=== PATIENT | female | born 1970 | race Caucasian/White ===

== ENCOUNTER → 2017-02-16 | Outpatient (CLI) | payer BC ==
--- NOTE | 2017-02-16 12:29 | MAMMOGRAPHY REPORT ---
BILATERAL DIGITAL SCREENING MAMMOGRAM TOMOSYNTHESIS WITH CAD: 02/16/2017 CLINICAL HISTORY: Routine screening. Patient has no complaints. TECHNIQUE: Breast tomosynthesis in addition to standard 2D mammography was performed. Current study was also evaluated with a Computer Aided Detection (CAD) system. COMPARISON: Comparison is made to exams dated: 02/16/2016 mammogram, 02/11/2015 mammogram, 02/07/2014 m ammogram, 02/06/2013 mammogram, 02/02/2012 mammogram, and 01/22/2010 mammogram - [facility]ter. BREAST COMPOSITION: There are scattered areas of fibroglandular density in both breasts. FINDINGS: No suspicious masses, calcifications, or areas of architectural distortion are noted in ei ther breast. There has been no significant interval change compared to prior exams. Scattered bilater al benign-appearing calcifications are not significantly changed. IMPRESSION: ACR BI-RADS CATEGORY 2: BENIGN There is no mammographic evidence of malignancy. A 1 year screening mammogram is recommended. The pa tient will receive written notification of the results. Approximately 10% of breast cancers are not detected with mammography. A negative mammographic report should not delay biopsy if a clinically suggestive mass is present. Katy García M.D. /:02/16/2017 10:12:21 Wire Mesh Knitter: Ariella JON)(M), [facility] letter sent: Normal 1/2 BI-RADS Code: ACR BI-RADS Category 2: Benign
== END | disposition home or self-care (01) ==
LOC: C.MAMM 08:06
PROVIDERS: ATTEND Family Medicine
DX: Z12.31 Encounter for screening mammogram for malignant neoplasm of breast (principal)

== ENCOUNTER → 2017-02-23 | Outpatient (CLI) | payer BC | END | disposition home or self-care (01) | LOC: C.PAPS 11:36 | PROVIDERS: ATTEND Physician Assistant | DX: Z01.419 Encounter for gynecological examination (general) (routine) without abnormal findings (principal) ==

== ENCOUNTER → 2017-05-16 | Outpatient (CLI) | payer BC ==
--- NOTE | 2017-05-16 17:49 | DIAGNOSTIC IMAGING REPORT ---
LEFT LOWER EXTREMITY VENOUS DOPPLER CLINICAL HISTORY: SWELLING BEHIND LEFT KNEE COMPARISON STUDY: No previous studies for comparison. TECHNIQUE: Sonography of the deep venous system of the left lower extremity was performed. Compression and augmentation were evaluated. FINDINGS: The common femoral, superficial femoral and popliteal veins were compressible. Augmentation was normal. Flow was shown within the deep calf vessels. Note is made of a 4.3 x 2.9 x 1.2 cm cystic structure within left popliteal fossa. IMPRESSION: 1. No evidence of deep venous thrombus within the left lower extremity. 2. 4.3 x 2.9 x 1.2 cm cystic abnormality within the left popliteal fossa which favors a popliteal cyst. Electronically signed by: Moy Jones M.D. 05/16/2017 5:47 PM Dictated Date/Time: 05/16/2017 5:46 PM
== END | disposition home or self-care (01) ==
LOC: C.ULTR 16:39
PROVIDERS: ATTEND Family Medicine Hospice and Palliative Medicine
DX: M79.89 Other specified soft tissue disorders (principal)

== ENCOUNTER 2018-08-05 09:18 | Observation (INO) ==
--- NOTE | 2018-08-05 09:53 | CT Scan Report ---
CT head/brain wo con CLINICAL HISTORY: Left-sided weakness. Stroke like symptoms. COMPARISON STUDY: No previous studies for comparison. TECHNIQUE: Axial CT of the brain is performed from the vertex to the skull base. IV contrast was not administered for this examination. A dose lowering technique was utilized adhering to the principles of ALARA. CT DOSE: FINDINGS: No intra or extra-axial mass lesions are visualized. There is no CT evidence of acute cortical infarc tion. There is no evidence of midline shift. There is no acute hemorrhage. No calvarial fractures ar e visualized. There is no evidence of pathologic ventricular dilatation. There is no evidence of acute sinusitis IMPRESSION: Normal noncontrast head CT. Electronically signed by: Danial Cobos M.D. 08/05/2018 9:51 AM
[2018-08-05 10:00] LABS: Basophils # (auto) 0.03 K/uL (0-0.2); Basophils % (auto) 0.4 %; Eosinophils # (auto) 0.11 K/uL (0-0.5); Eosinophils % (auto) 1.5 %; Hematocrit (blood only) 42.7 % (37-47); Hemoglobin 14.2 g/dL (12.0-16.0); Immature Granulocytes # (auto) 0.01 K/uL (0.00-0.02); Immature Granulocytes % (auto) 0.1 %; Lymphocytes # (auto) 1.95 K/uL (1.2-3.4); Lymphocytes % (auto) 26.2 %; Mean Corpuscular Hgb Conc 33.3 g/dL (32-36); Mean Corpuscular Volume 88.4 fL (80-100); Mean Platelet Volume 10.4 fL (7.4-10.4); Monocytes # (auto) 0.59 K/uL (0.11-0.59); Monocytes % (auto) 7.9 %; Neutrophils # (auto) 4.75 K/uL (1.4-6.5); Neutrophils % (auto) 63.9 %; Platelet Count 322 K/uL (130-400); RDW Coefficient of Variation 13.3 % (11.5-14.5); RDW Standard Deviation 43.1 fL (36.4-46.3); Red Blood Count 4.83 M/uL (4.2-5.4); White Blood Count 7.44 K/uL (4.8-10.8)
[2018-08-05] MEDS ORDERED: SODIUM CHLORIDE 0.9% 1000ML 1,000 ML IV ONE (10:00)
[2018-08-05 10:06] LABS: iSTAT Creatinine 0.8 mg/dl (0.6-1.3); iSTAT Ionized Calcium 1.18 mmol/l (1.12-1.32); iSTAT Potassium 3.9 mEq/L (3.3-5.0)
[2018-08-05 10:17] LABS: Alanine Aminotransferase 41 U/L (12-78); Albumin Level 3.7 gm/dl (3.4-5.0); Aspartate Aminotransferase 21 U/L (15-37); BUN Creatinine Ratio 15.4 (10-20); Blood Urea Nitrogen 14 mg/dl (7-18); Calcium 9.2 mg/dl (8.5-10.1); Carbon Dioxide 31 mmol/L (21-32); Chloride 107 mmol/L (98-107); Creatinine Clr Calc Pharmacy 85.8 ml/min; Est GFR (African American) 87.6; Est GFR (Non-African American) 75.6; Glucose 99 mg/dl (70-99); Magnesium 1.9 mg/dl (1.8-2.4); Sodium 143 mmol/L (136-145)
[2018-08-05 10:22] LABS: Albumin Globulin Ratio 0.8 (0.9-2); Alkaline Phosphatase 93 U/L (45-117); Bilirubin,Total 0.4 mg/dl (0.2-1); Globulin 4.6 gm/dl (2.5-4.0); Total Protein 8.3 gm/dl (6.4-8.2); Troponin I < 0.015 ng/ml (0-0.045)
[2018-08-05] MEDS ORDERED: ASPIRIN CHEW 324 MG PO STA (10:22)
[2018-08-05] MEDS ORDERED: IOVERSOL 100ml IV PRN (10:26)
[2018-08-05 10:27] LABS: Partial Thromboplastin Ratio 3.4; Prothrombin Time 10.6 Seconds (9.0-12.0)
[2018-08-05 10:31] LABS: Partial Thromboplastin Time 91.5 Seconds (21.0-31.0)
--- NOTE | 2018-08-05 10:44 | CT Scan Report ---
CT angio head w con CLINICAL HISTORY: L sided weakness. Stroke like symptoms. TECHNIQUE: CT angiography of the head was performed in a dynamic helical fashion during intravenous a dministration of 120 cc of Optiray 320. MIP imaging was performed. A dose lowering technique was util ized adhering to the principles of ALARA. CT DOSE: COMPARISON STUDY: Noncontrast head CT dated 08/05/2018 FINDINGS: There are no pathologically enhancing lesions. There is no evidence for dural venous sinus thrombosis. 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 There are no major intracranial branch occlusions. IMPRESSION: 1. 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 Electronically signed by: Danial Cobos M.D. 08/05/2018 10:42 AM
--- NOTE | 2018-08-05 10:45 | CT Scan Report ---
CT angio neck with con CLINICAL HISTORY: Acute stroke SIDED WEAKNESS COMPARISON STUDY: No previous studies for comparison. TECHNIQUE: CT angiography was performed from the aortic arch to the skull base. MIP imaging was perfo rmed. The patient was scanned in a dynamic helical fashion during intravenous administration of c c of Optiray 320. A dose lowering technique was utilized adhering to the principles of ALARA. CT DOSE: 542.67 mGy.cm Technique: CT angiogram of the carotid and vertebral arteries was obtained using intravenous contrast and 3-D reconstruction. NASCET criteria was utilized. Findings: The right carotid revealed no evidence of aneurysm and no evidence of dissection. There is no evidenc e of hemodynamic significant stenosis. The left carotid revealed no evidence of hemodynamic significant stenosis. There is no evidence of an eurysm. There is no evidence of dissection. There is no evidence of hemodynamically significant vertebral stenosis. There is no evidence of verte bral dissection. IMPRESSION: No evidence of hemodynamically significant carotid or vertebral artery stenosis. No evidence of disse ction. Electronically signed by: Danial Cobos M.D. 08/05/2018 10:44 AM
[2018-08-05] MEDS ORDERED: fentaNYL citrate 100 MCG/2 ML VIAL IV STA (10:48)
--- NOTE | 2018-08-05 11:02 | History & Physical Report ---
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 Neuro consulted and recommends short course of high dose steroids and close PCP follow-up. She is ambulatory with no swallowing deficits. First dose of prednisone given as i npatient and she was discharged home in stable condition. TTE was performed and reading was pending at time of dicsharge. (2) HOSEA (obstructive sleep apnea): CPAP per home settings. DVTproph-SCDs/ambulatory Full Dispo-to home. Mag Jurado DO [facility] Hospitalist History of Present Illness Chief Complaint: facial paralysis and numbness Primary Care Provider: Tamara Sanchez 47 yo nonsmoker presents with acute onset left facial weakness and numbness while brushing her teeth this morning. She also reported a left hand weakness. She denies headache or other stroke like symptoms. She described no recent illnesses. ROS was otherwise negative. A stroke alert was called in the ER and TPA was not indicated as her facial droop appeared equivocal and stroke scale was low. She was admitted to the hospitalist service and MRI was performed and negative. 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 An echo was performed with results pending at time of discharge. She was hemodynamically stable and afebrile. Speech pathology evaluated her and did not see any acute swallowing issues. Neurology evaluation revealed findings consistent with a Monteiro's palsy and high dose prednisone was started. She was considered low risk for stroke and was discharged in stable condition with a 5 day course of high dose prednisone and close primary care followup. Allergies Allergy/AdvReac Type Severity Reaction Status Date / Time oxycodone Allergy Mild Unknown Unverified 08/05/18 10:13 propoxyphene Allergy Mild Unknown Unverified 08/05/18 10:13 Home Medications Home Medications Medication Instructions Recorded Confirmed Type multivitamin 1 tab PO HS 08/05/18 08/05/18 History prednisone 60 mg PO DAILY 5 Days #15 tab 08/05/18 Rx Past Med/Surg History Medical History Pleurisy (Acute) Chest pain, unspecified (Resolved) HOSEA (obstructive sleep apnea) (Chronic) Surgical History History of endometrial ablation (Chronic) Hx of cholecystectomy (Chronic) Family History Other Family history non-contributory Social History Preferred Language: Danish Communication Ability: Effective Chicken Vaccinator Required: No Beliefs That Will Affect Care: None marital status: Current Living Situation: Spouse current occupational status: employed Other Information That Helps Us Care for You: No Feels Safe at Home: Yes Safety Concerns: Feels Safe At This Time Smoking Status: Never smoker Hx Alcohol Use: No Hx Substance Use: No Review of Systems At least ten systems were reviewed and negative except as indicated in HPI above. Physical Exam Vital Signs (Past 24 Hours): Last Vital Signs Temp 36.8 C 08/05/18 09:29 Pulse 63 08/05/18 11:00 Resp 20 08/05/18 09:29 BP 145/86 H 08/05/18 10:52 Pulse Ox 97 08/05/18 11:00 CONSTITUTIONAL: WNWD, vitals as above, generally well-appearing EYES: EOMI bilaterally, PERRL, normal conjuctivae, no scleral icterus ENT: facial paralysis of proximal left midface with some movement when she smiled. Normal sensation to bilateral face. Eyebrow raise intact bilaterally. She could fully close her L eye. R face not affected. Shoulder shrug intact. RESPIRATORY: clear to auscultation bilaterally, no crackles, rales or wheezes, normal respiratory effort CARDIOVASCULAR: regular rate and rhythm, S1 and 2 heard without murmurs, gallops or rubs, no JVD, no peripheral edema GASTROINTESTINAL: normal bowel sounds, soft, nontender, nondistended MUSCULOSKELETAL: strength 5/5 throughout, head is normocephalic and atraumatic, neck supple SKIN: warm and dry NEUROLOGIC: facial palsy as above, otherwise she is ambulatory. PSYCHIATRIC: alert cooperative and oriented to person, place and time. Results & Data Laboratory Results Short CBC 08/05/18 Range/Units 09:47 WBC 7.44 (4.8-10.8) K/uL Hgb 14.2 (12.0-16.0) g/dL Hct 42.7 (37-47) % Plt Count 322 (130-400) K/uL BMP 08/05/18 09:47 Sodium 143 Potassium 4.0 Chloride 107 Carbon Dioxide 31 BUN 14 Creatinine 0.90 Glucose 99 Calcium 9.2 Cardiac Enzymes 08/05/18 Range/Units 09:47 Troponin I < 0.015 (0-0.045) ng/ml Liver Function 08/05/18 Range/Units 09:47 Total Bilirubin 0.4 (0.2-1) mg/dl AST 21 (15-37) U/L ALT 41 (12-78) U/L Alkaline Phosphatase 93 (45-117) U/L Albumin 3.7 (3.4-5.0) gm/dl Diagnostic Findings MRI BRAIN W AND WO CONTRAST: IMPRESSION: 1. No acute intracranial findings 2. No evidence of acute or subacute infarction 3. No evidence of intracranial mass. CT HEAD/BRAIN WO CONTRAST: FINDINGS: No intra or extra-axial mass lesions are visualized. There is no CT evidence of acute cortical infarction. There is no evidence of midline shift. There is no acute hemorrhage. No calvarial fractures are visualized. There is no evidence of pathologic ventricular dilatation. There is no evidence of acute sinusitis IMPRESSION: Normal noncontrast head CT. CTA HEAD AND NECK IMPRESSION: 1. 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 2. No evidence of hemodynamically significant carotid or vertebral artery stenosis. No evidence of dissection. Code Status & VTE Plan Code Status full VTE Prophylaxis Plan VTE Prophylaxis will be ordered: No Critical Care Time Critical Care Time: No
[2018-08-05 11:33] LABS: Partial Thromboplastin Time 27.1 Seconds (21.0-31.0)
[2018-08-05] MEDS ORDERED: ATORVASTATIN 40 MG TAB PO SCH (12:37)
[2018-08-05] MEDS ORDERED: PHARMACIST DISCHARGE MED REC CONSULT PRN (12:37)
[2018-08-05] MEDS ORDERED: GADOBUTROL 10ML VIAL IV PRN (13:24)
[2018-08-05 13:26] VITALS: O2SAT 95
--- NOTE | 2018-08-05 13:56 | Magnetic Resonance Report ---
MRI OF THE BRAIN WITHOUT AND WITH IV CONTRAST CLINICAL HISTORY: L facial weakness, LUE weakness COMPARISON STUDY: Noncontrast head CT dated 08/05/2018 TECHNIQUE: MRI of the brain was performed from the vertex to the skull base utilizing various T1 and T2 weighted sequences. Following the IV administration of 9.5 mL of Gadavist contrast, additional enh anced images were obtained. FINDINGS: Sagittal T1, axial diffusion, proton density and T2 weighted axial, coronal FLAIR, and pre and post a xial T1-weighted images were acquired. These were supplemented with post gadolinium coronal T1 weight ed images. No intra or extra-axial mass lesions are visualized. Axial diffusion-weighted images reveal no evidence of acute or subacute infarction. There is no evidence of ventricular dilatation. Proton density T2-weighted and FLAIR images reveal a few punctate foci of increased FLAIR signal with in the white matter, likely on a small vessel basis, and of doubtful acute clinical significance. There are no abnormal flow voids. There is no evidence of pathologic enhancement. IMPRESSION: 1. No acute intracranial findings 2. No evidence of acute or subacute infarction 3. No evidence of intracranial mass. Electronically signed by: Danail Cobos M.D. 08/05/2018 1:54 PM
[2018-08-05] MEDS ORDERED: PERFLUTREN LIPID MICROSPHERE (DEFINITY) IV ONE (14:12)
[2018-08-05 16:02] VITALS: BP 142/84; PULSE 70; TEMP 97.9
--- NOTE | 2018-08-05 16:16 | Neurology Consultation ---
Date of Consultation August 05, 2018 Left Facial Droop Monteiro's Palsy A 47 year old woman admitted with acute left facial droop which she noticed this morning. Examine findings consistent with left peripheral CN VII palsy. MRI reviewed and Negative for acute stroke. CTA head and neck shows incidental ASA 4 mm anerusym. No significant stenosis or dissection. - Recommend Prednisone 60 mg PO x5days. - Eye patch as needed - Discussed with patient and . Symptoms should improve. Ok to discharge from Neuro standpoint. Can follow up with PCP. History of Present Illness Attending Physician: Mag Jurado DO A 47 year old woman presented to the ED this morning for acute onset left facial droop. Last normal yesterday prior to bed. Woke this morning and noticed with brushing her teeth. She has no PMH. No similar symptoms. Denies midcations. Denies hyperacusis or taste changes. Denies difiiculty closing her eye. Denies numbnes or weakness although reports left hand felt heavy while coming to the ED. Stroke alert called in ED. CTA head and neck showed a 4 mm GEOFF postcallosal aneurysm. No dissection or carotid stenosis. MRI brain was completed after admission which showed no evidence of acute stroke. Neuroogy consulted for further evaluation. Allergies Allergy/AdvReac Type Severity Reaction Status Date / Time oxycodone Allergy Mild Unknown Unverified 08/05/18 10:13 propoxyphene Allergy Mild Unknown Unverified 08/05/18 10:13 Home Medications Home Medications Medication Instructions Recorded Confirmed Type multivitamin 1 tab PO HS 08/05/18 08/05/18 History prednisone 60 mg PO DAILY 5 Days #15 tab 08/05/18 Rx Patient History Medical History Pleurisy (Acute) Chest pain, unspecified (Resolved) HOSEA (obstructive sleep apnea) (Chronic) Surgical History History of endometrial ablation (Chronic) Hx of cholecystectomy (Chronic) Family History Other Family history non-contributory Social History Preferred Language: Indonesian Communication Ability: Effective 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 Beliefs That Will Affect Care: None marital status: Current Living Situation: Spouse current occupational status: employed Other Information That Helps Us Care for You: No Feels Safe at Home: Yes Safety Concerns: Feels Safe At This Time Smoking Status: Never smoker Hx Alcohol Use: No Hx Substance Use: No Physical Exam Vital Signs (Past 24 Hours): Last Vital Signs Temp 36.6 C 08/05/18 16:00 Pulse 70 08/05/18 16:00 Resp 16 08/05/18 16:00 BP 142/84 H 08/05/18 16:00 Pulse Ox 95 08/05/18 16:00 Physical Exam: EXAM: Constitutional: appearance normally developed, well nourished Head and Face: normocephalic and atraumatic Eyes: normal lids, normal conjunctiva Neck: supple Respiratory: normal effort Cardiovascular: normal pulses Abdomen: non distended Skin: no rashes, lesions, or ulcers noted Psychiatric: normal judgement and insight, normal mood and normal affect NEUROLOGIC EXAMINATION: Appearance: no acute distress Orientation: awake, alert and oriented x 3 Mental Status: alert Memory: Good Attention: normal Knowledge: appropriate Language: no aphasia Speech: no dysarthria Cranial Nerves: CN 2 - no visual defect on confrontation and pupils round, equal, reactive to light CN 3, 4, 6 - extra-ocular movements intact and no nystagmus, mild left eye closure weakness CN 5 - facial sensation intact CN 7 - mild left facial droop which affect the forehead CN 8 - intact hearing CN 9, 10 - palate symmetric CN 11 - good shoulder shrug CN 12 - tongue midline Gait: deferred Coordination: no ataxia with finger to nose testing Sensory: intact to light touch and graphesia Muscle Tone: normal Reflexes;Toes down going, Negative corado, 2+ at the knees, no clonus Results & Data Diagnostic Findings MRI Brain w/wo: 1. No acute intracranial findings 2. No evidence of acute or subacute infarction 3. No evidence of intracranial mass. CTA head and neck: No evidence of hemodynamically significant carotid or vertebral artery stenosis. No evidence of dissection. 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
[2018-08-05] MEDS ORDERED: predniSONE 20 MG TAB PO STA (16:20)
--- NOTE | 2018-08-05 16:25 | Discharge Summary ---
Date of Service August 05, 2018 Admission HPI Per Admitting Provider 47 yo nonsmoker presents with acute onset left facial weakness and numbness while brushing her teeth this morning. She also reported a left hand weakness. She denies headache or other stroke like symptoms. She described no recent illnesses. ROS was otherwise negative. A stroke alert was called in the ER and TPA was not indicated as her facial droop appeared equivocal and stroke scale was low. She was admitted to the hospitalist service and MRI was performed and negative. 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 An echo was performed with results pending at time of discharge. She was hemodynamically stable and afebrile. Speech pathology evaluated her and did not see any acute swallowing issues. Neurology evaluation revealed findings consistent with a Monteiro's palsy and high dose prednisone was started. She was considered low risk for stroke and was discharged in stable condition with a 5 day course of high dose prednisone and close primary care followup. Admission Exam Per Admitting Provider Temp 36.8 C 08/05/18 09:29 Pulse 63 08/05/18 11:00 Resp 20 08/05/18 09:29 BP 145/86 H 08/05/18 10:52 Pulse Ox 97 08/05/18 11:00 CONSTITUTIONAL: WNWD, vitals as above, generally well-appearing EYES: EOMI bilaterally, PERRL, normal conjuctivae, no scleral icterus ENT: facial paralysis of proximal left midface with some movement when she smiled. Normal sensation to bilateral face. Eyebrow raise intact bilaterally. She could fully close her L eye. R face not affected. Shoulder shrug intact. RESPIRATORY: clear to auscultation bilaterally, no crackles, rales or wheezes, normal respiratory effort CARDIOVASCULAR: regular rate and rhythm, S1 and 2 heard without murmurs, gallops or rubs, no JVD, no peripheral edema GASTROINTESTINAL: normal bowel sounds, soft, nontender, nondistended MUSCULOSKELETAL: strength 5/5 throughout, head is normocephalic and atraumatic, neck supple SKIN: warm and dry NEUROLOGIC: facial palsy as above, otherwise she is ambulatory. PSYCHIATRIC: alert cooperative and oriented to person, place and time. Principal Diagnosis Acute idiopathic Monteiro's Palsy Discharge Data Allergies Allergy/AdvReac Type Severity Reaction Status Date / Time oxycodone Allergy Mild Unknown Unverified 08/05/18 10:13 propoxyphene Allergy Mild Unknown Unverified 08/05/18 10:13 Consultations 08/05/18 10:22 ED Decision to Admit Stat 08/05/18 12:37 Consult Case Management - Discharge Planning Routine Consult Neurology Routine Ordered Studies 08/05/18 09:39 CT angio head w con Stat CT angio neck with con Stat CT head/brain wo con Stat 08/05/18 12:37 MR brain wo/w con Routine Hospital Course (1) Monteiro's palsy: 47 yo nonsmoker presents with acute onset left facial weakness and numbness while brushing her teeth this morning. She also reported a left hand weakness. She denies headache or other stroke like symptoms. She described no recent illnesses. ROS was otherwise negative. A stroke alert was called in the ER and TPA was not indicated as her facial droop appeared equivocal and stroke scale was low. She was admitted to the hospitalist service and MRI was performed and negative. 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 An echo was performed with results pending at time of discharge. She was hemod ynamically stable and afebrile. Speech pathology evaluated her and did not see any acute swallowing issues. Neurology evaluation revealed findings consistent with a Monteiro's palsy and high dose prednisone was started. She was considered low risk for stroke and was discharged in stable condition with a 5 day course of high dose prednisone and close primary care followup. Total Time Total Time Spent Total Time Spent (In Minutes): 60 Total Time Includes: Examination of the Patient, Discharge Planning, Medication Reconciliation and Communication With Other Providers Discharge Plan Discharge Items Patient Disposition: Home - Self-Care Reason For Visit: TIA SYMPTOMS Discharge Diagnosis: Monteiro's palsy Condition: Good Discharge Goals: Improve disease control Activity: Resume your previous activity Non-emergency contact: Primary Care Provider Call non-emergency contact if: you have any medication questions, your symptoms worsen, your pain is worsening, your pain is unusual for you and you have a fever Follow-up/Referrals: Tamara Sanchez [Primary Care Provider] - Diet: Regular Addtl Provider Instructions: Please take complete prednisone (steroid) course as prescribed below. It is recommended that you follow up with your primary care provider within one week of discharge. Someone from our staff will be contacting you tomorrow to set this up. An echocardiogram was not read yet prior to your discharge. Results can be discussed with your physician on follow-up. It was a pleasure taking care of you! Please call if you have any questions or problems. You can reach a [facility] hospitalist on duty at [facility] 24 hours a day by calling [phone]. Take care of yourself. Mag Jurado, DO [facility] Hospitalist Prescriptions: New prednisone 20 mg tablet 60 mg PO DAILY 5 Days Qty: 15 RF: 0 Continued multivitamin Tablet,Chewable 1 tab PO HS RF: 0 Stand-Alone Forms: My [facility] Discharge Orders: Discharge Order (Routine); Ordered 08/05/18 Ordered By: Mag Jurado Admission Data Admit Date/Time: 08/05/18 11:27 Attending Provider: Mag Jurado Admit Provider: Mag Jurado Primary Care Provider: Tamara Sanchez Other Providers: Mike Phillips ; Tj Shields Service: Telemetry
[2018-08-05] MEDS ORDERED: STROKE PATIENT DISCHARGE PRN (16:34)
--- NOTE | 2018-08-05 19:05 | Emergency Department Note ---
Entered by Jo Ann Hayward acting as a scribe for Rashard Phelps MD History of Present Illness General Chief complaint: TIA Symptoms Stated complaint: NUMBNESS L SIDE, FACE DROOP Time Seen by Provider: 08/05/18 09:37 Source: patient History of Present Illness Onset (ago): hour(s) 1 Location: head Pain Consistency: + other (episode) Quality: + other (tingling and numbness) Associated symptoms: + denies other symptoms (congestion); no cough, no fever/chills, no headaches and no nausea/vomiting The patient is a 47 year old female who presents to the Emergency Room with complaints of an episode of tingling in the left arm and numbness on the left side of face an hour ago. She states that her symptoms began at 0830 when patient was putting on lipstick and she noticed she couldnt move normally. She reports that she has been feeling generally well lately and woke up feeling at baseline. She notes that she and her went for a 5 mile walk last night and she states that she hydrated afterwards. She denies any associated cough, fever, nausea/vomiting, headache, or congestion. The patient states there have no been changes in diet or water intake and no recent changes in stress level. The patient reports she does not take any blood thinners. She denies any history of gastric bleeding, brain tumors, bleeding on her brain, migraines or recent surgeries. The patient reports she has not experienced similar symptoms in the past. Home Medications Home Medications Medication Instructions Recorded Confirmed Type multivitamin 1 tab PO HS 08/05/18 08/05/18 History prednisone 60 mg PO DAILY 5 Days #15 tab 08/05/18 Rx Allergies Allergy/AdvReac Type Severity Reaction Status Date / Time oxycodone Allergy Mild Unknown Unverified 08/05/18 10:13 propoxyphene Allergy Mild Unknown Unverified 08/05/18 10:13 Past Med/Surg History Medical History Pleurisy (Acute) Chest pain, unspecified (Resolved) [place] (obstructive sleep apnea) (Chronic) Surgical History History of endometrial ablation (Chronic) Hx of cholecystectomy (Chronic) Family History Other Family history non-contributory Social History Preferred Language: [place] Beliefs That Will Affect Care: None marital status: Current Living Situation: Spouse current occupational status: employed Other Information That Helps Us Care for You: No Feels Safe at Home: Yes Safety Concerns: Feels Safe At This Time Smoking Status: Never smoker Hx Alcohol Use: No Hx Substance Use: No Review of Systems See HPI for pertinent positives & negatives. and A total of 10 systems reviewed and were otherwise negative Physical Exam Vital Signs Vital Signs - 24 hr 08/05/18 09:29 08/05/18 09:45 08/05/18 09:49 Temperature 36.8 C Temperature Source Oral Sepsis Recent Fever Within 48 Hours No Sepsis Action Taken by Nursing No Action Required Pulse Rate 70 72 68 Pulse Rate [Left Radial] Pulse Rate from SpO2 Sensor Pulse Rhythm [Left Radial] Pulse Strength [Left Radial] Respiratory Rate 20 Respiratory Effort / Characteristics Non-Labored Spontaneous Respiratory Depth Normal Respiratory Pattern Regular Blood Pressure 180/93 H 190/104 H Blood Pressure [Left Arm] Blood Pressure Mean 122 132 Blood Pressure Mean [Left Arm] Blood Pressure Position Sitting Blood Pressure Position [Left Arm] Pulse Oximetry 91 Oxygen Delivery Method Room Air 08/05/18 09:50 08/05/18 10:00 08/05/18 10:02 Temperature Temperature Source Sepsis Recent Fever Within 48 Hours Sepsis Action Taken by Nursing Pulse Rate 84 77 73 Pulse Rate [Left Radial] Pulse Rate from SpO2 Sensor 70 66 Pulse Rhythm [Left Radial] Pulse Strength [Left Radial] Respiratory Rate Respiratory Effort / Characteristics Respiratory Depth Respiratory Pattern Blood Pressure 198/165 H Blood Pressure [Left Arm] Blood Pressure Mean 176 Blood Pressure Mean [Left Arm] Blood Pressure Position Blood Pressure Position [Left Arm] Pulse Oximetry 96 96 Oxygen Delivery Method 08/05/18 10:07 08/05/18 10:10 08/05/18 10:11 Temperature Temperature Source Sepsis Recent Fever Within 48 Hours Sepsis Action Taken by Nursing Pulse Rate 94 H 74 70 Pulse Rate [Left Radial] Pulse Rate from SpO2 Sensor Pulse Rhythm [Left Radial] Pulse Strength [Left Radial] Respiratory Rate Respiratory Effort / Characteristics Respiratory Depth Respiratory Pattern Blood Pressure 160/96 H 145/97 H Blood Pressure [Left Arm] Blood Pressure Mean 117 113 Blood Pressure Mean [Left Arm] Blood Pressure Position Blood Pressure Position [Left Arm] Pulse Oximetry Oxygen Delivery Method 08/05/18 10:20 08/05/18 10:36 08/05/18 10:38 Temperature Temperature Source Sepsis Recent Fever Within 48 Hours Sepsis Action Taken by Nursing Pulse Rate 75 83 85 Pulse Rate [Left Radial] Pulse Rate from SpO2 Sensor 67 72 Pulse Rhythm [Left Radial] Pulse Strength [Left Radial] Respiratory Rate Respiratory Effort / Characteristics Respiratory Depth Respiratory Pattern Blood Pressure 61/47 L Blood Pressure [Left Arm] Blood Pressure Mean 51 Blood Pressure Mean [Left Arm] Blood Pressure Position Blood Pressure Position [Left Arm] Pulse Oximetry 96 96 Oxygen Delivery Method 08/05/18 10:40 08/05/18 10:41 08/05/18 10:50 Temperature Temperature Source Sepsis Recent Fever Within 48 Hours Sepsis Action Taken by Nursing Pulse Rate 71 73 78 Pulse Rate [Left Radial] Pulse Rate from SpO2 Sensor 70 69 74 Pulse Rhythm [Left Radial] Pulse Strength [Left Radial] Respiratory Rate Respiratory Effort / Characteristics Respiratory Depth Respiratory Pattern Blood Pressure 158/91 H Blood Pressure [Left Arm] Blood Pressure Mean 113 Blood Pressure Mean [Left Arm] Blood Pressure Position Blood Pressure Position [Left Arm] Pulse Oximetry 97 94 98 Oxygen Delivery Method 08/05/18 10:52 08/05/18 11:00 08/05/18 11:03 Temperature Temperature Source Sepsis Recent Fever Within 48 Hours Sepsis Action Taken by Nursing Pulse Rate 69 63 60 Pulse Rate [Left Radial] Pulse Rate from SpO2 Sensor 69 62 61 Pulse Rhythm [Left Radial] Pulse Strength [Left Radial] Respiratory Rate Respiratory Effort / Characteristics Respiratory Depth Respiratory Pattern Blood Pressure 145/86 H 148/98 H Blood Pressure [Left Arm] Blood Pressure Mean 105 114 Blood Pressure Mean [Left Arm] Blood Pressure Position Blood Pressure Position [Left Arm] Pulse Oximetry 98 97 97 Oxygen Delivery Method 08/05/18 11:10 08/05/18 11:24 08/05/18 11:30 Temperature Temperature Source Sepsis Recent Fever Within 48 Hours Sepsis Action Taken by Nursing Pulse Rate 68 61 Pulse Rate [Left Radial] Pulse Rate from SpO2 Sensor 67 66 58 L Pulse Rhythm [Left Radial] Pulse Strength [Left Radial] Respiratory Rate Respiratory Effort / Characteristics Respiratory Depth Respiratory Pattern Blood Pressure Blood Pressure [Left Arm] Blood Pressure Mean Blood Pressure Mean [Left Arm] Blood Pressure Position Blood Pressure Position [Left Arm] Pulse Oximetry 98 96 97 Oxygen Delivery Method 08/05/18 11:31 08/05/18 11:40 08/05/18 11:50 Temperature Temperature Source Sepsis Recent Fever Within 48 Hours Sepsis Action Taken by Nursing Pulse Rate 61 63 62 Pulse Rate [Left Radial] Pulse Rate from SpO2 Sensor 60 61 62 Pulse Rhythm [Left Radial] Pulse Strength [Left Radial] Respiratory Rate Respiratory Effort / Characteristics Respiratory Depth Respiratory Pattern Blood Pressure 127/97 Blood Pressure [Left Arm] Blood Pressure Mean 107 Blood Pressure Mean [Left Arm] Blood Pressure Position Blood Pressure Position [Left Arm] Pulse Oximetry 97 97 98 Oxygen Delivery Method 08/05/18 12:37 08/05/18 16:00 08/05/18 16:57 Temperature 36.5 C 36.6 C 36.6 C Temperature Source Oral Oral Sepsis Recent Fever Within 48 Hours Sepsis Action Taken by Nursing Pulse Rate Pulse Rate [Left Radial] 57 L 70 70 Pulse Rate from SpO2 Sensor Pulse Rhythm [Left Radial] Regular Pulse Strength [Left Radial] Normal Respiratory Rate 18 16 16 Respiratory Effort / Characteristics Non-Labored Respiratory Depth Normal Normal Respiratory Pattern Regular Blood Pressure Blood Pressure [Left Arm] 143/85 H 142/84 H 142/84 H Blood Pressure Mean Blood Pressure Mean [Left Arm] 104 103 Blood Pressure Position Blood Pressure Position [Left Arm] Sitting Lying Pulse Oximetry 95 95 95 Oxygen Delivery Method Room Air Room Air GENERAL: Awake, alert, anxious appearing, in no distress HENT: Normocephalic, atraumatic. Oropharynx with dry mucous membranes and otherwise unremarkable. EYES: Normal conjunctiva. Sclera non-icteric. EOMI. No nystamgus. PEARRL. NECK: Supple. No nuchal rigidity. FROM. No JVD. RESPIRATORY: Clear to auscultation. CARDIAC: Regular rate, normal rhythm. Extremities warm and well perfused. Pulses equal. ABDOMEN: Soft, non-distended. No tenderness to palpation. No rebound or guarding. No masses. RECTAL: Deferred. MUSCULOSKELETAL: Chest examination reveals no tenderness. The back is symmetrical on inspection without obvious abnormality. There is no CVA tenderness to palpation. No joint edema. LOWER EXTREMITIES: Calves are equal size bilaterally and non-tender. No edema. No discoloration. NEURO: Equivocal left facial droop with mild asymmetry at rest and symmetric facial movements. Subjective paresthesia of face and left upper extremity. No objective sensory or motor deficits noted. Normal finger to nose. 5/5 strength and SILT x4 extremities. SKIN: No rash or jaundice noted. Course 0938: Past medical records reviewed. The patient was evaluated in room B1, and a complete history and physical examination were performed. 0950: I spoke to Dr. Reta Brown Neurology. He will get on the telestroke to evaluate the patient. 1020: I discussed the patient's case with Dr. Selina Conner. He recommends no TPA and the patient stay for a further stroke work up. 1028: I reevaluated the patient and she was at CT. I updated her family on her test results and the treatment plan. They verbally agree and understand. 1041: I reviewed the patient's [facility] She will evaluate the patient for further management. Consultations Consultation #1: I spoke to Dr. Reta Brown Neurology. He will get on the telestroke to evaluate the patient. Time: 09:50 Consultation #2: I discussed the patient's case with Dr. Selina Conner. He recommends no TPA and the patient stay for a further stroke work up. Time: 10:20 Consultation #3: I reviewed the patient's case [facility] She will evaluate the patient for further management. Time: 10:41 Administered Medications Discontinued Medications Atorvastatin Calcium (Lipitor) 40 mg PO QAM LUAN Stop: 09/04/18 12:36 Last Admin: 08/05/18 16:52 Dose: Not Given Documented by: [id number] Gadobutrol (Gadavist 10ml) 9.5 ml IV ONCE PRN PRN Reason: Interaction Checking Stop: 08/09/18 13:23 Last Admin: 08/05/18 13:26 Dose: 9.5 ml Documented by: [id number] Sodium Chloride (Nss 1000ml) 1,000 mls @ 999 mls/hr IV .Q1H1M ONE Stop: 08/05/18 11:00 Last Admin: 08/05/18 10:14 Dose: 999 mls/hr Documented by: [id number] Ioversol (Optiray 320 100ml) 120 ml IV ONCE PRN PRN Reason: Interaction Checking Stop: 08/09/18 10:25 Last Admin: 08/05/18 10:27 Dose: 120 ml Documented by: [id number] Perflutren Lipid Microsphere (Definity) 2 ml IV ONCE ONE Stop: 08/05/18 14:13 Last Admin: 08/05/18 14:12 Dose: 2 ml Documented by: [id number] Prednisone (Prednisone) 60 mg PO ONE STA Stop: 08/05/18 16:21 Last Admin: 08/05/18 17:02 Dose: 60 mg Documented by: [id number] Medical Decision Making Differential Diagnosis Differential includes acute coronary syndrome, myocardial infarction, CVA, TIA, anemia, infection, pneumonia, UTI, pyelonephritis, poor nutrition, dehydration, electrolyte disturbance,hypoglycemia. Medical Records Attestation: I reviewed the patient's medical records. Home Medications Current Medication List: was personally reviewed by me Laboratory Data Attestation: I reviewed the patient's lab results. Result diagrams: 08/05/18 09:47 08/05/18 09:47 Lab Results 08/05/18 08/05/18 08/05/18 Range/Units 09:47 09:47 09:47 WBC 7.44 (4.8-10.8) K/uL RBC 4.83 (4.2-5.4) M/uL Hgb 14.2 (12.0-16.0) g/dL POC Hgb (12.0-16.0) g/dl Hct 42.7 (37-47) % POC Hct (37-47) % MCV 88.4 (80-100) fL MCH 29.4 (25-34) pg MCHC 33.3 (32-36) g/dL RDW Std Deviation 43.1 (36.4-46.3) fL RDW Coeff of Dashawn 13.3 (11.5-14.5) % Plt Count 322 (130-400) K/uL MPV 10.4 (7.4-10.4) fL Immature Gran % (Auto) 0.1 % Neut % (Auto) 63.9 % Lymph % (Auto) 26.2 % [place] % (Auto) 7.9 % Eos % (Auto) 1.5 % Baso % (Auto) 0.4 % Immature Gran # (Auto) 0.01 (0.00-0.02) K/uL Neut # (Auto) 4.75 (1.4-6.5) K/uL Lymph # (Auto) 1.95 (1.2-3.4) K/uL [place] # (Auto) 0.59 (0.11-0.59) K/uL Eos # (Auto) 0.11 (0-0.5) K/uL Baso # (Auto) 0.03 (0-0.2) K/uL PT 10.6 (9.0-12.0) Seconds INR 1.0 (0.9-1.1) APTT 91.5 H* (21.0-31.0) Seconds PTT Ratio 3.4 POC Sodium (135-144) mEq/L Sodium 143 (136-145) mmol/L POC Potassium (3.3-5.0) mEq/L Potassium 4.0 (3.5-5.1) mmol/L POC Chloride (101-112) mEq/L Chloride 107 (98-107) mmol/L Carbon Dioxide 31 (21-32) mmol/L POC Total CO2 (24-31) mEq/l Anion Gap 5.0 (3-11) POC Anion Gap (16-25) mmol/L POC BUN (7-18) mg/dl BUN 14 (7-18) mg/dl Creatinine 0.90 (0.6-1.2) mg/dl POC Creatinine (0.6-1.3) mg/dl Est Cr Clr Drug Dosing 85.8 ml/min Est GFR ( Amer) 87.6 Est GFR (Non-Af Amer) 75.6 BUN/Creatinine Ratio 15.4 (10-20) Glucose 99 (70-99) mg/dl POC Glucose (other) (70-99) mg/dl Calcium 9.2 (8.5-10.1) mg/dl POC Ioniz Calcium Amanda (1.12-1.32) mmol/l Magnesium 1.9 (1.8-2.4) mg/dl Total Bilirubin 0.4 (0.2-1) mg/dl AST 21 (15-37) U/L ALT 41 (12-78) U/L Alkaline Phosphatase 93 (45-117) U/L Troponin I < 0.015 (0-0.045) ng/ml Total Protein 8.3 H (6.4-8.2) gm/dl Albumin 3.7 (3.4-5.0) gm/dl Globulin 4.6 H (2.5-4.0) gm/dl Albumin/Globulin Ratio 0.8 L (0.9-2) Blood Type Antibody Screen 08/05/18 08/05/18 08/05/18 Range/Units 09:47 09:52 10:55 WBC (4.8-10.8) K/uL RBC (4.2-5.4) M/uL Hgb (12.0-16.0) g/dL POC Hgb 15.0 (12.0-16.0) g/dl Hct (37-47) % POC Hct 44 (37-47) % MCV (80-100) fL MCH (25-34) pg MCHC (32-36) g/dL RDW Std Deviation (36.4-46.3) fL RDW Coeff of Dashawn (11.5-14.5) % Plt Count (130-400) K/uL MPV (7.4-10.4) fL Immature Gran % (Auto) % Neut % (Auto) % Lymph % (Auto) % [place] % (Auto) % Eos % (Auto) % Baso % (Auto) % Immature Gran # (Auto) (0.00-0.02) K/uL Neut # (Auto) (1.4-6.5) K/uL Lymph # (Auto) (1.2-3.4) K/uL [place] # (Auto) (0.11-0.59) K/uL Eos # (Auto) (0-0.5) K/uL Baso # (Auto) (0-0.2) K/uL PT (9.0-12.0) Seconds INR (0.9-1.1) APTT 27.1 (21.0-31.0) Seconds PTT Ratio 1.0 POC Sodium 142 (135-144) mEq/L Sodium (136-145) mmol/L POC Potassium 3.9 (3.3-5.0) mEq/L Potassium (3.5-5.1) mmol/L POC Chloride 103 (101-112) mEq/L Chloride (98-107) mmol/L Carbon Dioxide (21-32) mmol/L POC Total CO2 27 (24-31) mEq/l Anion Gap (3-11) POC Anion Gap 17.0 (16-25) mmol/L POC BUN 14 (7-18) mg/dl BUN (7-18) mg/dl Creatinine (0.6-1.2) mg/dl POC Creatinine 0.8 (0.6-1.3) mg/dl Est Cr Clr Drug Dosing ml/min Est GFR ( Amer) Est GFR (Non-Af Amer) BUN/Creatinine Ratio (10-20) Glucose (70-99) mg/dl POC Glucose (other) 102 H (70-99) mg/dl Calcium (8.5-10.1) mg/dl POC Ioniz Calcium Amanda 1.18 (1.12-1.32) mmol/l Magnesium (1.8-2.4) mg/dl Total Bilirubin (0.2-1) mg/dl AST (15-37) U/L ALT (12-78) U/L Alkaline Phosphatase (45-117) U/L Troponin I (0-0.045) ng/ml Total Protein (6.4-8.2) gm/dl Albumin (3.4-5.0) gm/dl Globulin (2.5-4.0) gm/dl Albumin/Globulin Ratio (0.9-2) Blood Type O Positive Antibody Screen NEGATIVE Imaging Data Radiologist's Impression: Radiology results as stated below per my review and t he radiologists interpretation: CT head/brain wo con CLINICAL HISTORY: Left-sided weakness. Stroke like symptoms. COMPARISON STUDY: No previous studies for comparison. TECHNIQUE: Axial CT of the brain is performed from the vertex to the skull base. IV contrast was not administered for this examination. A dose lowering technique was utilized adhering to the principles of ALARA. CT DOSE: FINDINGS: No intra or extra-axial mass lesions are visualized. There is no CT evidence of acute cortical infarction. There is no evidence of midline shift. There is no acute hemorrhage. No calvarial fractures are visualized. There is no evidence of pathologic ventricular dilatation. There is no evidence of acute sinusitis IMPRESSION: Normal noncontrast head CT. Electronically signed by: Danial Cobos M.D. 08/05/2018 9:[address] angio head w con CLINICAL HISTORY: L sided weakness. Stroke like symptoms. TECHNIQUE: CT angiography of the head was performed in a dynamic helical fashion during intravenous administration of 120 cc of Optiray 320. MIP imaging was performed. A dose lowering technique was utilized adhering to the principles of ALARA. CT DOSE: COMPARISON STUDY: Noncontrast head CT dated 08/05/2018 FINDINGS: There are no pathologically enhancing lesions. There is no evidence for dural venous sinus thrombosis. 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 There are no major intracranial branch occlusions. IMPRESSION: 1. 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 Electronically signed by: Danial Cobos M.D. 08/05/2018 10:[address] angio neck with con CLINICAL HISTORY: Acute stroke SIDED WEAKNESS COMPARISON STUDY: No previous studies for comparison. TECHNIQUE: CT angiography was performed from the aortic arch to the skull base. MIP imaging was performed. The patient was scanned in a dynamic helical fashion during intravenous administration of cc of Optiray 320. A dose lowering technique was utilized adhering to the principles of ALARA. CT DOSE: 542.67 mGy.cm Technique: CT angiogram of the carotid and vertebral arteries was obtained using intravenous contrast and 3-D reconstruction. NASCET criteria was utilized. Findings: The right carotid revealed no evidence of aneurysm and no evidence of dis section. There is no evidence of hemodynamic significant stenosis. The left carotid revealed no evidence of hemodynamic significant stenosis. There is no evidence of aneurysm. There is no evidence of dissection. There is no evidence of hemodynamically significant vertebral stenosis. There is no evidence of vertebral dissection. IMPRESSION: No evidence of hemodynamically significant carotid or vertebral artery stenosis. No evidence of dissection. Electronically signed by: Danial Cobos M.D. 08/05/2018 10:44 AM ECG Data Attestation: I personally reviewed and interpreted this ECG as follows: Indication: weakness Rate (beats per minute): 68 Rhythm: sinus with SA Findings: + other (normal axis); no ST depression, no ST elevation and no acute ischemic change Blood Pressure Blood Pressure Findings: Elevated blood pressure Blood Pressure Disposition: further management by hospitalist NÉSTOR York The patient is a pleasant 47-year-old woman previously healthy who presents emergency department with left-sided facial and arm numbness with associated left facial weakness per hpi. On arrival the patient is in no acute distress, afebrile stable vital signs. Stroke alert was activated from triage and patient was sent to CT for immediate noncontrast CT scan. On exam the patient has equivocal left facial droop with mild asymmetry at rest and symmetric facial movements. Subjective paresthesia of face and left upper extremity. No objective sensory or motor deficits noted. Normal finger to nose. 5/5 strength and SILT x4 extremities. NIH score 2. Case was discussed with Dr. Myers, telestroke neurologist, who evaluated the patient via telestroke agrees that given the patient's low NIH score would not recommend TPA. Moreover symptoms not convincing for stroke as etiology at this time. Recommends CTA of the head and neck as well as admission further stroke evaluation. Recommends full dose aspirin followed by daily baby aspirin. 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 Otherwise, no acute findings. WBC, H/H, platelets wnl. Chemistry without acidosis. LFTs and electrolytes unremarkable. Troponin negative. EKG unremarkable without acute ischemia. Case was d/w Dr. Jurado, [facility] hospitalist, who will evaluate the patient for admission. Impression & Plan Stroke-like symptoms Discharge Plan Visit Data *Final* Discharge Date/Time: 08/05/18 12:01 Chief Complaint: TIA Symptoms Stated Complaint: NUMBNESS L SIDE, FACE DROOP ED Provider: Rashard Phelps Discharge Problem: Stroke-like symptoms Patient Disposition: Being Evaluated by Hospitalist Condition: Good Discharge Instructions Interventions: ED Discharge Assessment Last Done: 08/05/18 12:01 The scribe's documentation has been prepared under my direction and personally reviewed by me in its entirety. I confirm that the note above accurately reflects all work, treatment, procedures, and medical decision making performed by me.
[2018-08-05] MEDS ORDERED: MULTIVITAMIN TAB PO SCH (21:00)
[2018-08-06] MEDS ORDERED: ASPIRIN 81 MG ECTAB PO SCH (09:00)
== END 2018-08-05 18:07 | disposition home or self-care (01) ==
LOC: 2S 09:18 → ED 09:18 → 2S 12:01